=== PATIENT | female | born 1945 | race Caucasian/White ===

== ENCOUNTER 2017-11-25 23:52 | Emergency (ER) | payer MEDICARE, BC ==
[2017-11-26 00:01] VITALS: BP 181/90; PULSE 93; RESP 20; TEMP 97.9
[2017-11-26] MEDS ORDERED: TOPICAL SKIN ADHESIVE 1 EACH AMP TOPICAL ONE (00:10)
--- NOTE | 2017-11-26 00:13 | ED ---
Fall HPI - General Source: patient Mode of arrival: wheelchair <Tawanna Jeffers - Last Filed: 11/26/17 00:45> <Stacie Jj - Last Filed: 11/26/17 07:18> - General Chief Complaint: Fall Stated Complaint: Fall Time Seen by Provider: 11/26/17 00:03 - History of Present Illness Initial Comments: 72-year-old female patient presents to the emergency department today for evaluation after experiencing a fall about an hour prior to arrival. Patient states that she is currently staying at a hotel and was trying to find light the bathroom when she lost her footing, fell for striking her forehead on the cabinet. Patient denies any loss of consciousness with the episode. States that she has very mild pain to the frontal region of her head. Denies any use of anticoagulant medications. She denies any nausea, vomiting, dizziness, weakness, numbness, or tingling. Denies any other injuries. Patient has laceration to the forehead so presented to have this evaluated. Patient states her last tetanus vaccine was one month ago. Patient has Parkinson's disease and does fall frequently. Patient denies any headache, neck pain, back pain, chest pain, shortness of breath, dizziness, weakness, abdominal pain, nausea, vomiting, or difficulties with bowel movements or urination. (Tawanna Jeffers) - Related Data Home Medications Medication Instructions Recorded Confirmed Carbidopa-Levodopa 25-100 mg 1 each PO TID 11/26/17 11/26/17 [Sinemet 25-100] Allergies Allergy/AdvReac Type Severity Reaction Status Date / Time No Known Allergies Allergy Verified 11/26/17 00:01 Review of Systems ROS Other: All systems not noted in ROS Statement are negative. <Tawanna Jeffers - Last Filed: 11/26/17 00:45> ROS Other: All systems not noted in ROS Statement are negative. <Stacie Jj - Last Filed: 11/26/17 07:18> ROS Statement: Those systems with pertinent positive or pertinent negative responses have been documented in the HPI. Past Medical History Past Medical History: Rheumatoid Arthritis (RA) Additional Past Medical History / Comment(s): Parkinsons History of Any Multi-Drug Resistant Organisms: None Reported Past Surgical History: Tonsillectomy Additional Past Surgical History / Comment(s): ear sx Past Psychological History: No Psychological Hx Reported Smoking Status: Former smoker Past Alcohol Use History: Rare Past Drug Use History: None Reported <Tawanna Jeffers M - Last Filed: 11/26/17 00:45> General Exam Limitations: no limitations General appearance: alert, in no apparent distress, other (This is a well- developed, well-nourished elderly female patient in no acute distress. Vital signs upon presentation are temperature 97.9F, pulse 93, respirations 20, blood pressure 181/90, pulse ox 99% on room air.) Head exam: Present: other (Patient is 1.5 cm laceration noted to the right sided forehead. No bony step-off or deformity noted to palpation around the site.) Eye exam: Present: normal appearance, PERRL, EOMI. Absent: scleral icterus, conjunctival injection, nystagmus, periorbital swelling ENT exam: Present: normal exam, normal oropharynx, mucous membranes moist, other (Patient has small abrasion to the bridge of the nose. No epistaxis. No evidence of septal hematoma.) Neck exam: Present: normal inspection, full ROM, other (Nontender, no step-off, no deformity to firm midline palpation of the posterior cervical spine. Full range of motion without pain or limitation.). Absent: tenderness, meningismus, lymphadenopathy Respiratory exam: Present: normal lung sounds bilaterally. Absent: respiratory distress, wheezes, rales, rhonchi, stridor Cardiovascular Exam: Present: regular rate, normal rhythm, normal heart sounds. Absent: systolic murmur, diastolic murmur, rubs, gallop, clicks GI/Abdominal exam: Present: soft, normal bowel sounds. Absent: distended, tenderness, guarding, rebound, rigid Back exam: Present: normal inspection, other (Nontender, no step-off, no deformity to firm midline palpation of the thoracic and lumbar vertebrae. Full range of motion without pain or limitation.). Absent: vertebral tenderness Neurological exam: Present: alert, oriented X3, CN II-XII intact, other ( Patient has resting generalized tremor.) Psychiatric exam: Present: normal affect, normal mood Skin exam: Present: warm, dry, intact, normal color. Absent: rash <Tawanna Jeffers M - Last Filed: 11/26/17 00:45> Vital Signs 11/25/17 23:57 Temperature 97.9 F Pulse Rate 93 Respiratory 20 Rate Blood Pressure 181/90 O2 Sat by Pulse 99 Oximetry Procedures - Laceration Laceration #1 Consent Obtained: verbal consent Time Out Performed: Yes Indication: laceration Site: face (Forehead) Description: linear Depth: simple, single layer Type of Sutures: other (Exofin) Patient Tolerated Procedure: well, no complications <Tawanna Jeffers - Last Filed: 11/26/17 00:45> <Stacie Jj - Last Filed: 11/26/17 07:18> - Laceration Laceration #1 Additional Comments: Laceration size 1.5cm (Tawanna Jeffers) Medical Decision Making <Tawanna Jeffers - Last Filed: 11/26/17 00:45> <Stacie Jj - Last Filed: 11/26/17 07:18> - Medical Decision Making 72-year-old female patient presented to the emergency department today for evaluation of laceration to the forehead after expressing a fall today. Patient fell from ground level striking her forehead on a cabinet in the bathroom. Patient denies loss of consciousness at time of injury. Denies any use of anticoagulants. Denies any current headache. Physical examination does reveal a 1.5 cm laceration to the forehead with surrounding subcutaneous edema consistent with contusion. Patient is neurologically intact with no focal deficits. Did repair the laceration using exofin. Patient has no other complaints or concerns. Given low mechanism of injury and area of injuries on computed tomography scan is not needed at this time. They were however educated extensively regarding signs or symptoms of worsening head injury and is instructed to follow-up or present to the nearest emergency department for further evaluation should she have any problems. Tetanus was given one month ago. Return parameters discussed in detail. They verbalize understanding and agrees this plan. (Tawanna Jeffers) I was available for consultation in the emergency department. The history and physical exam were done by the midlevel provider. I was consulted for this patient's care. I reviewed the case with the midlevel provider and based on their presentation of the patient, I agree with the assessment, medical decision making and plan of care as documented. (Stacie Jj) Disposition Is patient prescribed a controlled substance at d/c from ED?: No Time of Disposition: 00:44 <Tawanna Jeffers M - Last Filed: 11/26/17 00:45> <Stacie Jj - Last Filed: 11/26/17 07:18> Clinical Impression: Forehead contusion, Forehead laceration, Facial abrasion Disposition: HOME SELF-CARE Condition: Good Instructions: Laceration (ED), Contusion in Adults (ED), Skin Adhesive Care (ED ) Additional Instructions: Apply ice to the painful areas. Follow-up with your primary care physician for recheck as soon as possible. Return or present to the nearest emergency department immediately for signs or symptoms of worsening head injury including severe headache, vomiting, confusion, dizziness, or weakness. Return or be evaluated immediately for any other new, worsening, or concerning symptoms Referrals: Nonstaff,Physician [Primary Care Provider] - 1-2 days
== END 2017-11-26 01:05 | disposition home or self-care (01) ==
LOC: EDBD → EC 23:52
DX: S01.81XA Laceration without foreign body of other part of head, initial encounter (principal); G20 Parkinson's disease; Z79.899 Other long term (current) drug therapy; Z87.891 Personal history of nicotine dependence; W18.09XA Striking against other object with subsequent fall, initial encounter; Y92.59 Other trade areas as the place of occurrence of the external cause
CPT/HCPCS: 12011; 99283